=== PATIENT | female | born 1995 | race Caucasian/White ===

== ENCOUNTER 2017-01-23 09:25 | Emergency (ER) | payer OTHER | END 2017-01-23 11:23 | disposition home or self-care (01) | LOC: ER 09:25 | DX: N39.0 Urinary tract infection, site not specified (principal); Z88.0 Allergy status to penicillin; Z88.1 Allergy status to other antibiotic agents; Z87.440 Personal history of urinary (tract) infections | CPT/HCPCS: 36415; 96361; 96365; 96375; J0696; J1885 ==